=== PATIENT | male | born 1965 | race Caucasian/White ===

== ENCOUNTER 2017-08-15 13:58 | Emergency (ER) | payer SELFPAY ==
--- NOTE | 2017-08-15 14:20 | PDOC ---
History of Present Illness - General Chief Complaint: Injury Stated Complaint: INJURY TO HEAD S/P FALL Time Seen by Provider: 08/15/17 14:12 History Source: Patient Exam Limitations: No Limitations - History of Present Illness Initial Comments: 08/15/17 14:47 52M with no pmh presents with headache after slipping on ice on a outside staircase this morning and hitting the back of his head. He states that he didn' t lose consciousness, but walked back up to his apartment where he sat on the couch in pain, and eventually fell asleep for an hour. When he woke up the swelling at the back of his head reduced in size but the pain didn't resolve with time so he decided to come to Urgent Care who sent him to the ER. Hasn't seen a doctor in two years. 08/15/17 14:56 Past History - Past Medical History Allergies/Adverse Reactions: Allergies Allergy/AdvReac Type Severity Reaction Status Date / Time No Known Allergies Allergy Verified 08/15/17 14:20 Home Medications: Ambulatory Orders NK [No Known Home Medication] 08/15/17 - Suicide/Smoking/Psychosocial Hx Smoking History: Never smoked Hx Alcohol Use: No Drug/Substance Use Hx: No Substance Use Type: None Review of Systems - Review of Systems Able to Perform ROS?: Yes Is the patient limited Kyrgyz proficient: No Constitutional: No: Symptoms Reported HEENTM: Yes: See HPI. No: Eye Pain, Blurred Vision Respiratory: No: Symptoms reported Cardiac (ROS): No: Symptoms Reported ABD/GI: No: Symptoms Reported : No: Symptoms Reported Musculoskeletal: No: Symptoms Reported Integumentary: No: Symptoms Reported Neurological: No: Symptoms reported All Other Systems: Reviewed and Negative *Physical Exam - Physical Exam General Appearance: Yes: Nourished, Appropriately Dressed. No: Apparent Distress HEENT: positive: EOMI, TRISTIN, Normal ENT Inspection, Other (Edema on occipital skull. ) Neck: negative: Tender Respiratory/Chest: positive: Lungs Clear, Normal Breath Sounds. negative: Chest Tender, Respiratory Distress Cardiovascular: positive: Regular Rhythm, Regular Rate, S1, S2 Gastrointestinal/Abdominal: positive: Normal Bowel Sounds. negative: Tender, Flat Neurologic: positive: pie baker II-XII NML intact, Fully Oriented, Alert, Normal Mood/ Affect, Normal Response, Motor Strength 5/5, Respond to painful stimul. negative: Abnormal Cranial NS, Numbness, Sensory Deficit, Finger to Nose Medical Decision Making - Medical Decision Making 08/15/17 14:57 R/o Concussion vs epidural hematoma vs skull fracture Ct Head pending *DC/Admit/Observation/Transfer Diagnosis at time of Disposition: Closed head injury - Discharge Dispostion Disposition: HOME Condition at time of disposition: Stable Admit: No - Referrals - Patient Instructions Printed Discharge Instructions: DI for Closed Head Injury Additional Instructions: Come back to the ER for any new, concerning or worsening symptom. Print Language: SWISS - Post Discharge Activity
--- NOTE | 2017-08-15 14:28 | PDOC ---
Attending Attestation - Resident Resident Name: Abraham Núñez - ED Attending Attestation I have performed the following: I have examined & evaluated the patient, The case was reviewed & discussed with the resident, I agree w/resident's findings & plan, Exceptions are as noted - HPI HPI: 08/15/17 16:07 The patient is a 52 year old male, with no significant past medical history, who presents to the emergency department with headache s/p a slip and fall this morning prior to arrival on icy stairs. The patient reports he was walking down the stairs from outside of his apartment, was on the 3rd to last step, when he fell backwards and hit his head on the back of the stairs. The patient denies loss of consciousness and reports he is able to recall all events leading up to and after the fall. The patient states he noticed a bump at the site of the head strike, so he walked back up to the apartment and slept for approx. one hour. The patient reports when he woke up the bump was still there so he decided to come to the ED for evaluation. He is not on any blood thinners or other medications. Denies other injuries or pain elsewhere. He denies double or blurry vision. He denies dizziness or lightheadedness prior or after falling. Denies focal weakness or numbness or headache. He denies recent fever or chills. He denies recent nausea, vomiting, diarrhea, or constipation. He denies recent chest pain or shortness of breath. Allergies: NKA - Physicial Exam PE: 08/15/17 16:07 GENERAL: Awake, alert, and fully oriented, in no acute distress HEAD: Occiput with palpable 5x6cm hematoma with no skin break EYES: PERRLA, EOMI, sclera anicteric, conjunctiva clear ENT: Auricles normal inspection, hearing grossly normal, nares patent, oropharynx clear without exudates. Moist mucosa NECK: Normal ROM, supple, no lymphadenopathy, JVD, or masses LUNGS: Breath sounds equal, clear to auscultation bilaterally. No wheezes, and no crackles HEART: Regular rate and rhythm, normal S1 and S2, no murmurs, rubs or gallops ABDOMEN: Soft, nontender, normoactive bowel sounds. No guarding, no rebound. No masses EXTREMITIES: Normal range of motion, no edema. No clubbing or cyanosis. No cords, erythema, or tenderness NEUROLOGICAL: Normal speech, cranial nerves intact, negative pronator drift, 5/ 5 strength in all 4 extremities, normal sensation to light touch in all 4 extremities, normal cerebellar exam, normal gait, normal reflexes and tone SKIN: Warm, Dry, normal turgor, no rashes or lesions noted. - Medical Decision Making 08/15/17 15:33 52-year-old male with no significant past medical history presents after a mechanical fall. Vitals unremarkable. Exam with hematoma over the occipital scalp, but otherwise unremarkable. CT scan of his head with no acute pathology. Patient currently is asymptomatic and requests discharge. I discussed the physical exam findings, ancillary test results and final diagnoses with the patient. I answered all of the patient's questions. The patient was satisfied with the care received and felt comfortable with the discharge plan and treatment plan. The patient will call their primary care physician within 24 hours to arrange follow-up and will return to the Emergency Department with any new, persistent or worsening symptoms.
[2017-08-15 14:29] VITALS: BP 129/83; PULSE 77; TEMP 98.4; BMI 38.9
== END 2017-08-15 15:37 | disposition home or self-care (01) ==
LOC: FER 13:58
DX: S09.90XA Unspecified injury of head, initial encounter (principal); W00.0XXA Fall on same level due to ice and snow, initial encounter; Y93.89 Activity, other specified; Y92.009 Unspecified place in unspecified non-institutional (private) residence as the place of occurrence of the external cause
CPT/HCPCS: 70450-TC; 99282-25